=== PATIENT | female | born 1950 | race Caucasian/White ===

== ENCOUNTER 2017-01-10 07:08 | Emergency (ER) | payer SELFPAY ==
[2017-01-10] MEDS ORDERED: HYDROcodone/ACETAMIN 5-325 MG* 1 TAB PO ONE (08:14)
--- NOTE | 2017-01-10 08:27 | RAD ---
Indication: RIGHT knee pain following twisting injury. Pain radiates up the lateral femur. Comparison: None. Technique: RIGHT knee: AP, tunnel, lateral, sunrise views. Report: Small suprapatellar joint effusion. Negative for fracture or malalignment. Preserved joint spaces. Unremarkable soft tissue contours. IMPRESSION: Small suprapatellar joint effusion without additional radiographic abnormality.
[2017-01-10 09:40] VITALS: BP 132/90
--- NOTE | 2017-01-10 10:44 | UC ---
Crystal Bush Rebecca, scribed for Earl Barrera MD on 01/10/17 at 0737 . Lower Extremity/Ankle HPI - HPI Summary HPI Summary: Pt is a 66 y/o F who presents to [facility] c/o R knee pain. 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 Pain is currently severe, ranked 8/10 and characterized as sharp. She is unable to ambulate. Sx aggravated by pressure and ambulation, alleviated by nothing. Additionally c/o RLE calf pain and R knee swelling for which she had a venous doppler study done on 12/27/2016 that was negative. Denies hip or ankle pain, CP and SOB. Is on blood thinners. No PMHx RA. Has an appointment with Dr. Noe' s office today at 1400. - History of Current Complaint Chief Complaint: UCLowerExtremity Stated Complaint: KNEE INJURY Time Seen by Provider: 01/10/17 07:15 Hx Obtained From: Patient Onset/Duration: Sudden Onset, Lasting Hours, Still Present Severity Currently: Severe Pain Intensity: 8 Pain Scale Used: 0-10 Numeric Aggravating Factor(s): Ambulation, Other - Pressure Alleviating Factor(s): Nothing Able to Bear Weight: No Related History: Occupational Injury - Allergies/Home Medications Allergies/Adverse Reactions: Allergies Allergy/AdvReac Type Severity Reaction Status Date / Time Latex Allergy Unknown Unknown Verified 01/10/17 07:33 Reaction Details Sulfamethoxazole Allergy Unknown Unknown Verified 01/10/17 07:33 w/Trimethoprim Reaction [From Bactrim] Details Penicillins Allergy Hives Verified 01/10/17 07:33 Ticagrelor [From Brilinta] Allergy Palpitation Verified 01/10/17 07:33 s Home Medications: Home Medications Ezetimibe TAB* [Zetia TAB*] 10 mg PO DAILY 01/10/17 [History Confirmed 01/10/17] PMH/Surg Hx/FS Hx/Imm Hx Endocrine History: Hypothyroidism Cardiovascular History: Myocardial Infarction - Surgical History Surgical History: Yes Surgery Procedure, Year, and Place: BLADDER SURGERY - 2006 [facility] – [place] - Family History Known Family History: Positive: Cardiac Disease - Social History Alcohol Use: None Substance Use Type: None Smoking Status (MU): Never Smoked Tobacco - Immunization History Most Recent Influenza Vaccination: pt state she is allergic Most Recent Tetanus Shot: unk Most Recent Pneumonia Vaccination: n/a Review of Systems Constitutional: Negative Skin: Negative Eyes: Negative ENT: Negative Respiratory: Negative Cardiovascular: Negative Gastrointestinal: Negative Genitourinary: Negative Motor: Negative Neurovascular: Negative Musculoskeletal: Other: - POSITIVE: R knee pain s/p injury; RLE calf pain and R knee swelling NEGATIVE: Hip or ankle pain Neurological: Negative Psychological: Negative All Other Systems Reviewed And Are Negative: Yes Physical Exam Triage Information Reviewed: Yes Vital Signs: Initial Vital Signs Temp 99 F 01/10/17 07:13 Pulse 69 01/10/17 07:13 Resp 18 01/10/17 07:13 BP 128/70 01/10/17 07:13 Pulse Ox 99 01/10/17 07:13 Vital Signs Reviewed: Yes - Additional Comments The patient is well-nourished in no acute distress and in no acute pain. The skin is warm and dry and skin color reflects adequate perfusion. Neck is supple with full range of motion and non-tender. There are no carotid bruits. There is no neck vein distension. Respiratory: Chest is non-tender. Lungs are clear to auscultation and breath sounds are symmetrical and equal. Cardiovascular: Hear is regular rate and rhythm. There is no murmur or rub auscultated. Pulses are symmetrical and equal. Musculoskeletal: There is no back pain noted. There is good capillary refill. She can extend only to 10 and only about 80 degrees of flexion of the knee. NO medial or lateral collateral ligament laxity. Some swelling in the R knee. Medial and lateral compartment tenderness. Swelling over the patellar tendon. Some RLE edema. No patellar ballottement. Cannot assess ACL, PCL or the menisci secondary to increased pain. Marked tenderness on the posterior aspect of the RLE where flexors insert on the knee cap. Good pulses distally. Neurological: Patient is alert and oriented to person, place and time. The patient has symmetrical motor strength in all four extremities. Psychiatric: The patient has an appropriate affect and does not exhibit any anxiety or depression. Diagnostics - Radiology Right Knee XR Xray Interpretation: Positive (See Comments) - Small suprapatellar joint effusion without additional radiographic abnormality. Radiology Interpretation Completed By: Radiologist Re-Evaluation - Re-Evaluation First Eval Re-Evaluation Time: 08:14 Change: Unchanged Comment: Pt reports that she is in pain and requesting medication. Confirms she ahs somebody else to drive her home today. Second Eval Re-Evaluation Time: 08:32 Comment: Discussed XR results with the patient. Lower Extremity Course/Dx - Course Course Of Treatment: Pt is a 66 y/o F who presents to [facility] c/o R knee pain. 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 Pain is currently severe, ranked 8/10 and characterized as sharp. She is unable to ambulate. Sx aggravated by pressure and ambulation, alleviated by nothing. Additionally c/o RLE calf pain and R knee swelling for which she had a venous doppler study done on 12/27/2016 that was negative. Denies hip or ankle pain, CP and SOB. Is on blood thinners. No PMHx RA. Has an appointment with Dr. Noe's office today at 1400. Knee XR reveals: Small suprapatellar joint effusion without additional radiographic abnormality. In the [facility] course , pt was administered Eastpointe 5-325. She will be D/C to home with Dx of internal derangement of the right knee and effusion of the right knee with an Rx for Eastpointe 5-325. She understands and agrees. Patient medications reviewed this visit. Elevated BP noted and advised to f/u with her PCP. - Differential Dx/Diagnosis Differential Diagnosis/HQI/PQRI: Dislocation, Fracture (Closed), Sprain, Strain , Other - meniscus injury, osteoarthritis Provider Diagnoses: Internal derangement of the right knee, effusion right knee Discharge - Discharge Plan Condition: Stable Disposition: HOME Prescriptions: Hydrocodone-Acetaminophen [Eastpointe 5-325 mg] 1 tab PO Q6HR PRN #20 tab MDD 4 PRN Reason: pain Patient Education Materials: Knee Immobilizer (ED), RICE Therapy (ED) Forms: *Work Release Referrals: Roshan Romero MD [Medical Doctor] - Lyudmila Noe NP [Primary Care Provider] - The documentation as recorded by the scribe, DiFabio,Maira accurately reflects the service I personally performed and the decisions made by me, Earl Barrera MD.
== END 2017-01-10 09:30 | disposition home or self-care (01) ==
LOC: UCEAST 07:08
DX: S89.91XA Unspecified injury of right lower leg, initial encounter (principal); X50.1XXA Overexertion from prolonged static or awkward postures, initial encounter; Y93.89 Activity, other specified; Y92.190 Kitchen in other specified residential institution as the place of occurrence of the external cause; Y99.0 Civilian activity done for income or pay; E03.9 Hypothyroidism, unspecified; I25.2 Old myocardial infarction; Z88.0 Allergy status to penicillin; Z88.2 Allergy status to sulfonamides; Z91.040 Latex allergy status
CPT/HCPCS: 99213; G0463